=== PATIENT | female | born 1985 | race American Indian/Alaskan Native ===

== ENCOUNTER 2017-06-26 20:59 | Emergency (ER) | payer OTHER ==
[2017-06-26] MEDS ORDERED: DILAUDID ONE ×2 (21:12→22:53)
[2017-06-26] MEDS ORDERED: THERMAZENE 50 GRAM TP ONE (21:13)
[2017-06-26] MEDS ORDERED: ZOFRAN ODT ONE (21:14)
[2017-06-26] MEDS ORDERED: DILAUDID IV ONE ×2 (21:14→22:44)
[2017-06-26] MEDS ORDERED: ZOFRAN ODT PO ONE (21:15)
[2017-06-26] MEDS ORDERED: THERMAZENE 50 GRAM TP SCH (22:00)
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
[2017-06-26] MEDS ORDERED: NACL 0.9% 1000 ML 1,000 ML IV ONE (23:20)
[2017-06-26 23:41] VITALS: BP 157/105
[2017-06-26] MEDS ORDERED: NACL 0.9% 1000 ML 1,000 ML IV SCH (23:45)
[2017-06-27] MEDS ORDERED: NORCO 10/325 PO ONE (00:47)
== END 2017-06-27 02:05 | disposition other institution (70) ==
LOC: ED 20:59
DX: T23.262A Burn of second degree of back of left hand, initial encounter (principal); I10 Essential (primary) hypertension; F41.9 Anxiety disorder, unspecified; F17.200 Nicotine dependence, unspecified, uncomplicated; X10.2XXA Contact with fats and cooking oils, initial encounter; Y93.89 Activity, other specified; Y92.89 Other specified places as the place of occurrence of the external cause; Y99.8 Other external cause status
CPT/HCPCS: 16020; 81025; 96361; 96374; 96376; 99285; J1170; Q0162